=== PATIENT | female | born 1980 | race Caucasian/White ===

== ENCOUNTER 2017-03-11 11:14 | Outpatient (CLI) | payer OTHER | END 2017-03-11 11:15 | disposition home or self-care (01) | LOC: CTENTCT 11:14 | PROVIDERS: ATTEND Specialist | DX: J32.9 Chronic sinusitis, unspecified (principal) | CPT/HCPCS: 70486 ==

== ENCOUNTER 2017-03-17 08:34 | Day surgery (SDC) | payer OTHER ==
[2017-03-16 15:39] VITALS: BMI 28.3
[2017-03-17] MEDS ORDERED: Oxymetazoline HCl 0.05% ( 15 ML ) ONE ×2 (09:15→09:38)
[2017-03-17 09:28] LABS: Hematocrit 43.9 % (36.0-47.0)
[2017-03-17] MEDS ORDERED: Lidocaine 1% w/Epinephrine 1:200K 30 ML VIAL ONE (09:38)
[2017-03-17] MEDS ORDERED: Fentanyl 100 MCG/2 ML VIAL ONE ×2 (09:41)
[2017-03-17] MEDS ORDERED: Midazolam HCl 2 mg/2 ml Vial ONE (09:41)
[2017-03-17] MEDS ORDERED: Ondansetron HCl/PF 4 MG/2 ML Vial ONE (09:57)
[2017-03-17] MEDS ORDERED: Propofol 200 MG/20 ML VIAL ONE (09:57)
[2017-03-17] MEDS ORDERED: Dexamethasone 20 MG/5 ML VIAL ONE (09:57)
[2017-03-17] MEDS ORDERED: Lidocaine 1% PF 5 ML VIAL ONE (09:57)
--- NOTE | 2017-03-17 10:57 | OP ---
PREOPERATIVE DIAGNOSES: Chronic sinusitis, chronic facial pain, headache, hypertrophic inferior tur binates. POSTOPERATIVE DIAGNOSES: Chronic sinusitis, chronic facial pain, headache, hypertrophic inferior tu rbinates. PROCEDURES PERFORMED: 1. Bilateral nasal endoscopy with maxillary antrostomy. 2. Bilateral nasal endoscopy with total ethmoidectomy. 3. Bilateral nasal endoscopy with frontal sinusotomy. 4. Bilateral nasal endoscopy with submucosal resection of inferior turbinates. FINDINGS: The patient had accessory os bilaterally. They were made contiguous with the natural os and polyps in the both ostiomeatal complex areas. PROCEDURE IN DETAIL: After consent was obtained, the patient was identified, brought to the operati ng room, and placed on the operating room table in the supine position. Consent was obtained, notif pepe the patient of the possibility of additional infections, bleeding, brain injury, and eye/orbita l injury. The patient was placed on the operating room table, and general endotracheal anesthesia and intravenous access was obtained. The patient was then positioned, prepped and draped for endosc opic sinus surgery. Nasal preparation included trimming nasal vestibular hairs and spraying in topi tova Afrin. We then placed Afrin topical solution on nasal pledgets and strategically located them i ntranasally. The perinasal mucosa was injected with 1% lidocaine with 1:100,000 epinephrine in the submucoperichondrial plane of the septum, lateral nasal wall, and anterior to the uncinate. The pat ient was then prepped and draped in a sterile fashion and positioned for endoscopic sinus surgery. Maxillary Antrostomy: The uncinate was then identified and the extent of the uncinate was appreciat ed by out-fracturing the uncinate with the ball-tip probe. We then used the sickle blade to disarti culate the uncinate from the lateral nasal wall. This was then removed with straight biting and upb iting punches with the remaining shrouds of mucosa and bony septum removed with the micro-debrider. The natural os of the maxillary sinus was then identified and enlarged with the maxillary punches a nd back biting forceps. Total Ethmoidectomy: The anterior face of the ethmoid bulla was entered and with the micro-debrider , dissection continued posteriorly to the ground lamella. The limits of dissection included the ins ertion of the middle turbinate, medial orbital wall, and base of skull. We similarly identified the frontal recess and removed shrouds of bone and debris in that region to obtain patency into the agg er nasi region and frontal recess. We then entered the ground lamella and its anteroinferior aspect and proceeded posteriorly, opening the posterior ethmoid air-cell system. Again, the limits of dis section included the base of skull and medial orbital wall. Frontal sinusotomy: The anterior face of the ethmoid bulla was entered and with the micro-debrider, dissection continued posteriorly to the ground lamella. The limits of dissection included the inse rtion of the middle turbinate, medial orbital wall, and base of skull. We similarly identified the frontal recess and removed shrouds of bone and debris in that region to obtain patency into the Agge r Nasi region and frontal recess. We then entered the ground lamella and its anteroinferior aspect and proceeded posteriorly, opening the posterior ethmoid air-cell system. Again, the limits of diss ection included the base of skull and medial orbital wall. Submucosal resection of inferior turbinates: The inferior turbinates were visualized with a 0-degre e endoscope and outfractured with a [place] elevator. The inferior medial aspect was cauterized with t he electrocautery. Hemostasis was obtained. After adequate airway was established, we turned our att ention to the contralateral side and used a similar procedure. Again, a [place] elevator was used to o utfracture inferior turbinates under endoscopic visualization. With a suction cautery, the free infe rior medial aspect was cauterized under direct visualization along the length of the inferior turbin ate. The inferior turbinates were visualized under endoscopic visualization and outfractured with the mart vator. The inferolateral edge of the inferior turbinate was then cauterized along its length with t he suction cautery without difficulty. At this point, we then turned our attention to the contralateral side and proceeded with endoscopic sinus surgery. At the completion of the case, [place] keel splints were placed in the ethmoid cavities after the ethmo idectomy. There were no complications. The patient tolerated the procedure well and was discharged to the recovery room in stable condition prior to return to the preoperative Day Stay with ultimate discharge home. Prescriptions for pain medication and antibiotics were provided. The patient rece ived intramuscular Depo-Medrol during the case.
== END 2017-03-17 13:45 | disposition home or self-care (01) ==
LOC: SDC 08:34
PROVIDERS: ATTEND Specialist
PROC: 09TL8ZZ Resection of Nasal Turbinate, Via Natural or Artificial Opening Endoscopic (ICD-10-PCS; principal; 2017-03-17)
PROC: 09BT8ZZ Excision of Left Frontal Sinus, Via Natural or Artificial Opening Endoscopic (ICD-10-PCS; principal; 2017-03-17)
PROC: 09BS8ZZ Excision of Right Frontal Sinus, Via Natural or Artificial Opening Endoscopic (ICD-10-PCS; principal; 2017-03-17)
PROC: 09TV8ZZ Resection of Left Ethmoid Sinus, Via Natural or Artificial Opening Endoscopic (ICD-10-PCS; principal; 2017-03-17)
PROC: 099Q8ZZ Drainage of Right Maxillary Sinus, Via Natural or Artificial Opening Endoscopic (ICD-10-PCS; principal; 2017-03-17)
PROC: 09TU8ZZ Resection of Right Ethmoid Sinus, Via Natural or Artificial Opening Endoscopic (ICD-10-PCS; principal; 2017-03-17)
PROC: 099R8ZZ Drainage of Left Maxillary Sinus, Via Natural or Artificial Opening Endoscopic (ICD-10-PCS; principal; 2017-03-17)
DX: J32.9 Chronic sinusitis, unspecified (principal); J34.3 Hypertrophy of nasal turbinates; I10 Essential (primary) hypertension; J45.909 Unspecified asthma, uncomplicated; K21.9 Gastro-esophageal reflux disease without esophagitis; F32.9 Major depressive disorder, single episode, unspecified; F41.9 Anxiety disorder, unspecified; Z79.899 Other long term (current) drug therapy
CPT/HCPCS: 36415; 84703; 85014; 96374; J0131; J1100; J2001; J2250; J2270; J2405; J2704; J3010

== ENCOUNTER 2017-07-20 22:34 | Emergency (ER) | payer OTHER ==
[2017-07-20 23:29] LABS: Hemoglobin 14.8 g/dL (12.0-16.0); Mean Corpuscular HGB CONC 33.4 g/dL (32.0-36.0); Mean Corpuscular Hemoglobin 33.9 pg (27.0-31.0); Mean Platelet Volume 5.5 fL (7.4-10.4); Platelet Count 218 thou/uL (130-400); RBC Distribution Width 12.8 % (11.5-14.5); Red Blood Cell (RBC) Count 4.36 mill/uL (4.20-5.40)
[2017-07-20 23:40] LABS: ALT (SGPT) 80 U/L (8-55); AST (SGOT) 99 U/L (5-34); Acetaminophen Less than 6.0 mcg/mL (10.0-30.0); Albumin 4.6 g/dL (3.5-5.0); Alcohol 236 mg/dL (Less than 10); Alcohol 237 mg/dL (Less than 10); Alkaline Phosphatase 96 U/L (40-150); Anion Gap 16 mmol/L (10-20); BUN (Urea Nitrogen) 7 mg/dL (7.0-18.7); Bilirubin, Total 0.3 mg/dL (0.2-1.2); CK (CPK) 62 U/L (29-168); Calc. Creatinine Clearance 0 mL/min (70-130); Calcium 9.2 mg/dL (7.8-10.44); Carbon Dioxide 25 mmol/L (22-29); Chloride 104 mmol/L (98-107); Estimated GFR-MDRD Greater than 90; Globulin 3.4 g/dL (2.4-3.5); Glucose 100 mg/dL (70-105); Potassium 3.9 mmol/L (3.5-5.1); Salicylate Less than 8.0 mg/dL (15.0-30.0); Sodium 141 mmol/L (136-145)
[2017-07-20 23:47] LABS: Lymphocytes 65 % (21-51); MDiff Complete? YES; Monocytes 5 % (0-10); Neutrophil 29 % (42-75)
[2017-07-20 23:53] LABS: Bilirubin Negative (Negative); Blood, Urine Small (Negative); Clarity CLEAR (Clear); Glucose, Urine (Dipstick) Negative (Negative); Leukocyte Negative (Negative); Nitrite Negative (Negative); Protein, Urine (Dipstick) Trace mg/dL (Neg-Trace); Specific Gravity, Urine 1.014 (1.002-1.036); Urobilinogen 0.2 mg/dL (0.2-1.0); pH, Urine 6.5 (5.0-9.0)
[2017-07-20 23:58] LABS: Pathc Cast-AUWi Flag 0.13 (0-2.49); Pregnancy Test - Urine (BHCG) Negative (Negative); Pregu Control Background? CLEAR/WHITE (CLR/WHITE); Pregu Control Bar Appear? YES (CONTROL BAR); Specific Gravity 1.014 (1.002-1.036)
[2017-07-21 00:03] LABS: Amphetamine Not Detected (NotDetected); Barbiturates Screen Not Detected (NotDetected); Benzodiazepine Screen Not Detected (NotDetected); Cocaine Metabolite Screen Not Detected (NotDetected); Medtox Control Line Valid? VALID (VALID); Medtox Reader # READER 4; Methadone Not Detected (NotDetected); Methamphetamine Not Detected (NotDetected); Opiate Screen Not Detected (NotDetected); Oxycodone Screen Not Detected (NotDetected); Phencyclidine (PCP) Not Detected (NotDetected); THC/Cannabinoid Screen Not Detected (NotDetected); Tricyclic Screen Not Detected (NotDetected)
[2017-07-21 00:14] LABS: Bacteria/HPF 4+ HPF (None Seen); RBC/HPF 0-3 HPF (0-3); Renal Epithelial 0-3 HPF (0-3); Squamous Epithelial 0-3 HPF (0-3); Transitional Epithelial 0-3 HPF (0-3)
[2017-07-21 00:15] LABS: Hyaline Casts/LPF NONE SEEN LPF (0-3 Hyaline); Yeast-All Forms None Seen HPF (None Seen)
[2017-07-21] MEDS ORDERED: Cephalexin 250 MG CAP ONE (00:51)
== END 2017-07-21 10:15 | disposition home or self-care (01) ==
LOC: ERS 22:34
DX: F32.9 Major depressive disorder, single episode, unspecified (principal); F10.10 Alcohol abuse, uncomplicated; I10 Essential (primary) hypertension; F41.9 Anxiety disorder, unspecified; F43.10 Post-traumatic stress disorder, unspecified
CPT/HCPCS: 36415; 80053; 80306; 80307; 81003; 81015; 81025; 82550; 84443; 85025; 99285

== ENCOUNTER 2017-12-30 13:09 | Emergency (ER) | payer OTHER ==
[2017-12-30] MEDS ORDERED: Ondansetron HCl/PF 4 MG/2 ML Vial ONE (13:35)
[2017-12-30] MEDS ORDERED: Morphine 4 MG/ML Carpuject ONE (13:35)
[2017-12-30 14:03] LABS: Bilirubin Negative (Negative); Blood, Urine Trace (Negative); Clarity Clear (Clear); Glucose, Urine (Dipstick) Negative (Negative); Leukocyte Negative (Negative); Nitrite Negative (Negative); Protein, Urine (Dipstick) Negative (Neg-Trace); Urobilinogen 0.2 mg/dL (0.2-1.0)
[2017-12-30 14:04] LABS: Pregnancy Test - Urine (BHCG) Negative (Negative)
[2017-12-30 14:05] LABS: Pregu Control Background? CLEAR/WHITE (CLR/WHITE); Pregu Control Bar Appear? YES (CONTROL BAR)
[2017-12-30 14:11] LABS: Bacteria/HPF Rare-Few HPF (None Seen); RBC/HPF 0-3 HPF (0-3); WBC/HPF None Seen HPF (0-3)
[2017-12-30 14:19] LABS: ALT (SGPT) 105 U/L (8-55); AST (SGOT) 299 U/L (5-34); Albumin 4.3 g/dL (3.5-5.0); Alkaline Phosphatase 77 U/L (40-150); Anion Gap 22 mmol/L (10-20); BUN (Urea Nitrogen) 5 mg/dL (7.0-18.7); Bilirubin, Direct 0.6 mg/dL (0.1-0.3); Bilirubin, Total 1.3 mg/dL (0.2-1.2); Calc. Creatinine Clearance 0 mL/min (70-130); Calcium 8.6 mg/dL (7.8-10.44); Carbon Dioxide 21 mmol/L (22-29); Chloride 98 mmol/L (98-107); Estimated GFR-MDRD Greater than 90; Globulin 3.3 g/dL (2.4-3.5); Glucose 84 mg/dL (70-105); Lipase 323 U/L (8-78); Potassium 3.4 mmol/L (3.5-5.1); Protein, Total 7.6 g/dL (6.0-8.3); Sodium 138 mmol/L (136-145)
[2017-12-30] MEDS ORDERED: Metoclopramide HCl 10 MG/2 ML VIAL ONE (14:56)
[2017-12-30 15:02] LABS: Acetaminophen Less than 6.0 mcg/mL (10.0-30.0); Alcohol 324 mg/dL (Less than 10); Salicylate Less than 8.0 mg/dL (15.0-30.0)
[2017-12-30 15:08] LABS: Lactic Acid 3.4 mmol/L (0.5-2.2)
[2017-12-30] MEDS ORDERED: Thiamine HCl 200 MG/2 ML VIAL ONE (17:08)
[2017-12-30 18:48] LABS: Lactic Acid 2.8 mmol/L (0.5-2.2)
[2017-12-30 18:51] LABS: Anion Gap 12 mmol/L (10-20)
[2017-12-30 18:54] LABS: BUN (Urea Nitrogen) Less than 4 mg/dL (7.0-18.7); Calc. Creatinine Clearance 0 mL/min (70-130); Carbon Dioxide 24 mmol/L (22-29); Chloride 108 mmol/L (98-107); Estimated GFR-MDRD Greater than 90; Glucose 264 mg/dL (70-105); Potassium 3.2 mmol/L (3.5-5.1); Sodium 141 mmol/L (136-145)
== END 2017-12-30 19:22 | disposition left against medical advice (07) ==
LOC: SCSER 13:09
DX: E87.2 Acidosis (principal); E87.6 Hypokalemia; F10.129 Alcohol abuse with intoxication, unspecified; F41.9 Anxiety disorder, unspecified; F32.9 Major depressive disorder, single episode, unspecified; F43.10 Post-traumatic stress disorder, unspecified; I10 Essential (primary) hypertension
CPT/HCPCS: 36416; 80053; 80076; 80307; 81003; 81015; 81025; 82010; 83605; 83690; 93005; 96361; 96365; 96367; 96375; 36415-59; J2270; J2405; J2765; J3411